=== PATIENT | female | born 1940 | race Caucasian/White ===

== ENCOUNTER 2019-01-20 14:30 | Observation (INO) ==
[2019-01-20] MEDS ORDERED: NITROGLYCERIN SL 0.4 MG/TAB TAB SL STA (14:57)
[2019-01-20 15:06] LABS: Basophils # (auto) 0.02 K/uL (0-0.2); Basophils % (auto) 0.3 %; Eosinophils # (auto) 0.04 K/uL (0-0.5); Eosinophils % (auto) 0.6 %; Hematocrit (blood only) 39.3 % (37-47); Hemoglobin 13.5 g/dL (12.0-16.0); Immature Granulocytes # (auto) 0.01 K/uL (0.00-0.02); Immature Granulocytes % (auto) 0.2 %; Lymphocytes # (auto) 1.38 K/uL (1.2-3.4); Lymphocytes % (auto) 21.9 %; Mean Corpuscular Hemoglobin 33.9 pg (25-34); Mean Corpuscular Hgb Conc 34.4 g/dL (32-36); Mean Corpuscular Volume 98.7 fL (80-100); Monocytes # (auto) 0.66 K/uL (0.11-0.59); Monocytes % (auto) 10.5 %; Neutrophils # (auto) 4.19 K/uL (1.4-6.5); Neutrophils % (auto) 66.5 %; Platelet Count 241 K/uL (130-400); RDW Coefficient of Variation 13.2 % (11.5-14.5); Red Blood Count 3.98 M/uL (4.2-5.4)
[2019-01-20 15:14] LABS: Alanine Aminotransferase 19 U/L (12-78); Albumin Level 3.7 gm/dl (3.4-5.0); Aspartate Aminotransferase 25 U/L (15-37); BUN Creatinine Ratio 13.9 (10-20); Blood Urea Nitrogen 17 mg/dl (7-18); Calcium 9.4 mg/dl (8.5-10.1); Carbon Dioxide 28 mmol/L (21-32); Chloride 98 mmol/L (98-107); Est GFR (African American) 50.1; Est GFR (Non-African American) 43.3; Glucose 121 mg/dl (70-99); Lipase 163 U/L (73-393); Potassium 3.8 mmol/L (3.5-5.1); Sodium 134 mmol/L (136-145)
[2019-01-20] MEDS ORDERED: MAGNESIUM SULFATE / D5W 1 GM/100 ML BAG IV ONE (15:14)
[2019-01-20 15:19] LABS: Alkaline Phosphatase 75 U/L (45-117); Bilirubin,Total 0.4 mg/dl (0.2-1); Creatine Kinase 52 U/L (26-192); Creatine Kinase MB 1.6 ng/ml (0.5-3.6); Globulin 3.8 gm/dl (2.5-4.0); NT Pro B Type Natriuretic Pept 867 pg/ml (0-1800); Total Protein 7.5 gm/dl (6.4-8.2); Troponin I < 0.015 ng/ml (0-0.045)
--- NOTE | 2019-01-20 15:25 | XRay Report ---
XR chest 1V portable CLINICAL HISTORY: Atypical chest pain COMPARISON STUDY: No previous studies for comparison. FINDINGS: The heart is normal in size. There is a possible hiatal hernia.. There is mild interstitial thickening a finding of uncertain chronicity. There is no lobar consolidation. There are no large pl eural effusions[. There is mild sclerosis of the right scapular neck IMPRESSION: 1. No evidence of focal pulmonary consolidation 2. Mild interstitial thickening, finding of uncertain chronicity 3. Possible hiatal hernia Electronically signed by: Kahlil Alfaro M.D. 01/20/2019 3:24 PM
[2019-01-20 15:53] LABS: Appearance Urine Clear (Clear); Bacteria Urine Automated 2+ (Negative); Bilirubin Urine Negative (Negative); Blood Urine Trace (Negative); Color Urine Yellow; Epithelial Cell Urine Auto >30 /lpf (0-5); Glucose Urine UA Negative (Negative); Ketones Urine Negative (Negative); Leukocyte Esterase Urine Negative (Negative); Nitrite Urine Negative (Negative); Protein Urine Negative (Negative); RBC Urine Automated 0-4 /hpf (0-4); Urobilinogen Urine Negative (Negative); pH Urine 5.5 (4.5-7.5)
--- NOTE | 2019-01-20 16:00 | History & Physical Report ---
Date of Service January 20, 2019 Assessment & Plan (1) Chest pain: Chest Pain: R/O ACS Risk factors: H/O CAD S/P stents, HTN, HLP, +Family history Last Cardiac Stent on Jan 11, 2019 at [facility] Initial troponin:Negative EKG shows: Sinus rhythm with occasional PVCs, no prior EKG to compare CXR: Unremarkable Last ECHO: EF: Unknown Trend serial cardiac enzymes, repeat EKG, fasting lipid panel, A1C, TSH in AM Continue Aspirin,Plavix, statins Hold Metoprolol due to bradycardia Oxygen PRN Check Resting ECHO NPO after midnight Cardiology consulted Obtain old records Symptomatic Bradycardia History of paroxysmal atrial fibrillation Possible tachybradycardia Syndrome Hold me to allow secondary to bradycardia Pacer pads at bedside Check orthostatics Hold Xarelto IV heparin drip for now Abnormal UA History of chronic urinary retention Urine sample likely contaminated due to catheterized urine Asymptomatic currently No antibiotics for now Follow-up urine culture Sleep apnea Continue CPAP Q Hs Hypertension Stable Monitor Dyslipidemia Continue Statin Hypothyroidism Continue Levothyroxine Check TSH Chronic urinary retention Self Cath PRN Continue Bactrim--chronic suppressive therapy DVT Px: Heparin drip Code Status Full Code Disposition Expect to discharge home when stable History of Present Illness Chief Complaint: Chest Pain, Dizziness Primary Care Provider: ELIZABETH ALTAMIRANO Patient is a 78-year-old female with history of coronary artery disease S/P stents, paroxysmal atrial fibrillation on chronic anti-coagulation, sleep apnea on CPAP, hypertension, dyslipidemia, hypothyroidism, chronic urinary retention and other problems presents with history of Chest pain, Dizziness. Patient had a stent placed on Jan 11, 2019 at [facility] in [place]. Patient got readmitted on January 12 for increased heart rate at [facility] as per patient. Patient's Toprol-XL was recently decreased from 50 mg to 25 mg daily. Patient reports chest pain which is retrosternal, pressure-like sensation, radiates to back and right upper extremity, intermittent--lasts for few seconds to minutes, no increase with exertion, slightly improved with aspirin and nitroglycerin today. Reports associated shortness of breath and dizziness but denies any history of loss of consciousness. Patient received 4 baby aspirin's and route to the hospital and nitroglycerin while in ER. Currently she grades the pain as 5/10. Also reports dry cough for the last 2 days and has burping multiple times today. She is noted to be bradycardic and high 40s/low 50s while in ED. Denies any history of palpitations, pedal edema, diaphoresis, hemoptysis, fever, chills, fall, LOC, headache, nausea, vomiting, abdominal pain, diarrhea, dysuria, hematuria, increased urinary frequency. Allergies Allergy/AdvReac Type Severity Reaction Status Date / Time No Known Allergies Allergy Unverified 01/20/19 15:44 Home Medications Home Medications Medication Instructions Recorded Confirmed Type aspirin 81 mg PO QAM 01/20/19 01/20/19 History calcium carbonate-vitamin D3 0.5 tab PO BID 01/20/19 01/20/19 History clopidogrel 75 mg PO QAM 01/20/19 01/20/19 History cranberry 500 mg PO PM 01/20/19 01/20/19 History cyanocobalamin (vitamin B-12) 1,000 mcg PO PM 01/20/19 01/20/19 History diphenhydramine-acetaminophen 0.5 - 1 tab PO DIRECTED PRN 01/20/19 01/20/19 History [Tylenol PM Extra Strength] furosemide 10 mg PO QAM 01/20/19 01/20/19 History levothyroxine 75 mcg PO DAILYBB 01/20/19 01/20/19 History metoprolol succinate 25 mg PO QAM 01/20/19 01/20/19 History pantoprazole 40 mg PO QAM 01/20/19 01/20/19 History polyethylene glycol 3350 [GlycoLax] 17 g PO QAM 01/20/19 01/20/19 History rivaroxaban [Xarelto] 15 mg PO QDD 01/20/19 01/20/19 History rosuvastatin 10 mg PO PM 01/20/19 01/20/19 History sulfamethoxazole-trimethoprim 0.5 tab PO AMPM 01/20/19 01/20/19 History [Bactrim DS] Past Med/Surg History Medical History Hypertension Atrial fibrillation Bradycardia CAD (coronary artery disease) Depression with anxiety Hyperlipidemia Hypothyroidism Paroxysmal atrial fibrillation Sleep apnea Urinary retention Surgical History History of heart artery stent H/O neck surgery History of carpal tunnel surgery History of left knee replacement Family History Father Coronary heart disease Sister Coronary heart disease Brother Coronary heart disease Mother Cancer Social History Feels Safe at Home: Yes Smoking Status: Never smoker Hx Alcohol Use: No Hx Substance Use: No Review of Systems Review of Systems: All systems reviewed & are unremarkable except as noted in HPI & below Physical Exam Physical Exam: Physical Exam: Vitals signs as noted above General Appearance:Moderately built and nourished, no apparent distress Head: normocephalic, Atraumatic Eyes: normal inspection, EOMI Neck: supple, Trachea midline Respiratory/Chest: Normal breath sounds, CTA, No accessory muscle use Cardiovascular: S1, S2, + murmur, +Bradycardia Abdomen/GI:Soft, Non tender, Bowel sounds present Extremities/Musculoskelatal:normal inspection, Trace pretibial edema Neurologic/Psych:AAOX3, grossly no focal neurological deficits Skin: normal color, warm Results & Data Vital Signs (Past 12 Hours) Vital Signs Temp Pulse Resp BP Pulse Ox 01/20/19 14:57 98 01/20/19 14:41 36.6 C 58 L 18 118/70 98 Laboratory Results Short CBC 01/20/19 Range/Units 14:10 WBC 6.30 (4.8-10.8) K/uL Hgb 13.5 (12.0-16.0) g/dL Hct 39.3 (37-47) % Plt Count 241 (130-400) K/uL BMP 01/20/19 14:10 Sodium 134 L Potassium 3.8 Chloride 98 Carbon Dioxide 28 BUN 17 Creatinine 1.20 Glucose 121 H Calcium 9.4 Cardiac Enzymes 01/20/19 Range/Units 14:10 Total Creatine Kinase 52 (26-192) U/L CK-MB (CK-2) 1.6 (0.5-3.6) ng/ml Troponin I < 0.015 (0-0.045) ng/ml Liver Function 01/20/19 Range/Units 14:10 Total Bilirubin 0.4 (0.2-1) mg/dl AST 25 (15-37) U/L ALT 19 (12-78) U/L Alkaline Phosphatase 75 (45-117) U/L Albumin 3.7 (3.4-5.0) gm/dl Urine 01/20/19 Range/Units 15:30 Urine Color Yellow Urine Appearance Clear (Clear) Urine pH 5.5 (4.5-7.5) Ur Specific [place] 1.020 (1.000-1.030) Urine Protein Negative (Negative) Urine Glucose (UA) Negative (Negative) Diagnostic Findings CXR:No evidence of focal pulmonary consolidation. Mild interstitial thickening, finding of uncertain chronicity. Possible hiatal hernia Medications Administered Home Medications Medication Instructions Recorded Confirmed aspirin 81 mg PO QAM 01/20/19 01/20/19 calcium carbonate-vitamin D3 0.5 tab PO BID 01/20/19 01/20/19 clopidogrel 75 mg PO QAM 01/20/19 01/20/19 cranberry 500 mg PO PM 01/20/19 01/20/19 cyanocobalamin (vitamin B-12) 1,000 mcg PO PM 01/20/19 01/20/19 diphenhydramine-acetaminophen 0.5 - 1 tab PO DIRECTED PRN 01/20/19 01/20/19 [Tylenol PM Extra Strength] furosemide 10 mg PO QAM 01/20/19 01/20/19 levothyroxine 75 mcg PO DAILYBB 01/20/19 01/20/19 metoprolol succinate 25 mg PO QAM 01/20/19 01/20/19 pantoprazole 40 mg PO QAM 01/20/19 01/20/19 polyethylene glycol 3350 [GlycoLax] 17 g PO QAM 01/20/19 01/20/19 rivaroxaban [Xarelto] 15 mg PO QDD 01/20/19 01/20/19 rosuvastatin 10 mg PO PM 01/20/19 01/20/19 sulfamethoxazole-trimethoprim 0.5 tab PO AMPM 01/20/19 01/20/19 [Bactrim DS] ECG Additional Comments: EKG: Sinus rhythm with occasional PVCs, QTC 434
[2019-01-20] MEDS ORDERED: Heparin IV Standard *NO* Bolus IV SCH (18:21)
[2019-01-20] MEDS ORDERED: NITROGLYCERIN SL 0.4 MG/TAB TAB SL PRN (18:21)
[2019-01-20] MEDS ORDERED: ACETAMINOPHEN 325 MG TAB PO PRN (18:21)
[2019-01-20] MEDS ORDERED: ONDANSETRON INJ 2 MG/ML 2 ML VIAL IV PRN (18:21)
[2019-01-20] MEDS ORDERED: SODIUM CHLORIDE 0.9% 1000ML 1,000 ML IV SCH (19:00)
[2019-01-20] MEDS ORDERED: HEPARIN SODIUM/DEXTROSE 25,000 UNITS/500 ML BAG IV SCH (19:45)
[2019-01-20] MEDS: SULFAMETHOXAZOLE/TRIMETHOPRIM DS 800/160MG TAB PO SCH (20:08)
[2019-01-20] MEDS ORDERED: CYANOCOBALAMIN 500 MCG TABLET (VITAMIN B-12) PO SCH (21:00)
[2019-01-20] MEDS ORDERED: ROSUVASTATIN CALCIUM 10 MG TAB PO SCH (21:00)
[2019-01-20] MEDS ORDERED: NON-FORMULARY MEDICATION (Cranberry 500 MG) PO SCH (21:00)
[2019-01-21 02:11] LABS: Basophils # (auto) 0.02 K/uL (0-0.2); Basophils % (auto) 0.4 %; Eosinophils # (auto) 0.09 K/uL (0-0.5); Eosinophils % (auto) 1.7 %; Hematocrit (blood only) 33.5 % (37-47); Hemoglobin 11.5 g/dL (12.0-16.0); Immature Granulocytes # (auto) 0.01 K/uL (0.00-0.02); Immature Granulocytes % (auto) 0.2 %; Lymphocytes # (auto) 1.73 K/uL (1.2-3.4); Lymphocytes % (auto) 32.4 %; Mean Corpuscular Hemoglobin 33.3 pg (25-34); Mean Corpuscular Hgb Conc 34.3 g/dL (32-36); Mean Corpuscular Volume 97.1 fL (80-100); Mean Platelet Volume 9.4 fL (7.4-10.4); Monocytes # (auto) 0.68 K/uL (0.11-0.59); Monocytes % (auto) 12.7 %; Neutrophils # (auto) 2.81 K/uL (1.4-6.5); Neutrophils % (auto) 52.6 %; Platelet Count 216 K/uL (130-400); RDW Coefficient of Variation 13.2 % (11.5-14.5); RDW Standard Deviation 46.3 fL (36.4-46.3); Red Blood Count 3.45 M/uL (4.2-5.4); White Blood Count 5.34 K/uL (4.8-10.8)
[2019-01-21 02:29] LABS: BUN Creatinine Ratio 11.6 (10-20); Blood Urea Nitrogen 14 mg/dl (7-18); Calcium 8.7 mg/dl (8.5-10.1); Carbon Dioxide 27 mmol/L (21-32); Chloride 103 mmol/L (98-107); Creatinine Clr Calc Pharmacy 36.1 ml/min; Est GFR (African American) 50.1; Est GFR (Non-African American) 43.3; Glucose 101 mg/dl (70-99); Magnesium 2.3 mg/dl (1.8-2.4); Potassium 3.8 mmol/L (3.5-5.1); Sodium 136 mmol/L (136-145)
[2019-01-21 02:36] LABS: Partial Thromboplastin Ratio > 5.1
[2019-01-21 02:40] LABS: Chol HDL Ratio 2; Cholesterol 123 mg/dl (0-200); HDL Cholesterol 75 mg/dl; LDL Cholesterol Calculated 39 mg/dl; Triglycerides 43 mg/dl (0-150); Troponin I < 0.015 ng/ml (0-0.045); VLDL Cholesterol 9 mg/dl
[2019-01-21 04:06] LABS: Partial Thromboplastin Time > 139.0 Seconds (21.0-31.0)
[2019-01-21 04:22] LABS: Partial Thromboplastin Ratio 4.6
[2019-01-21 04:33] LABS: Partial Thromboplastin Time 125.9 Seconds (21.0-31.0)
[2019-01-21 05:53] LABS: Partial Thromboplastin Ratio 2.5
[2019-01-21] MEDS ORDERED: LEVOTHYROXINE SODIUM 75 MCG TABLET PO SCH (06:30)
[2019-01-21 07:14] LABS: Estimated Average Glucose 114 mg/dl; Hemoglobin A1C 5.6 % (4.5-5.6)
[2019-01-21] MEDS ORDERED: POLYETHYLENE (MIRALAX) 17 GM PACK PO SCH (09:00)
[2019-01-21] MEDS ORDERED: CLOPIDOGREL BISULFATE 75 MG TAB PO SCH (09:00)
[2019-01-21] MEDS ORDERED: ASPIRIN 81 MG ECTAB PO SCH (09:00)
[2019-01-21] MEDS ORDERED: PANTOprazole 40 MG TAB PO SCH (09:00)
[2019-01-21] MEDS: SULFAMETHOXAZOLE/TRIMETHOPRIM DS 800/160MG TAB PO SCH (09:17)
[2019-01-21] MEDS ORDERED: METOPROLOL SUCC 25MG EXT REL TAB PO SCH (12:30)
--- NOTE | 2019-01-21 12:31 | Hospitalist Progress Note ---
Date of Service January 21, 2019 Assessment & Plan (1) Chest pain: Chest Pain: R/O ACS Risk factors: H/O CAD S/P stents, HTN, HLP, +Family history Last Cardiac Stent on Jan 11, 2019 at [facility] Troponin:Negative EKG shows: Sinus rhythm with occasional PVCs, no prior EKG to compare CXR: No evidence of focal pulmonary consolidation. Mild interstitial thickening, finding of uncertain chronicity. Possible hiatal hernia ECHO: Mild concentric LVH, EF greater than 70%, no segmental left ventricular wall motion abnormality, grade 2 diastolic dysfunction, mild MR. Fasting lipid panel:WNL A1C:5.6 TSH:2.6 Continue Aspirin,Plavix, statins Metoprolol dose decreased to 12.5mg due to bradycardia Oxygen PRN Appreciate Cardiology Input Obtain old records Needs follow up with Cardiology upon discharge Symptomatic Bradycardia History of paroxysmal atrial fibrillation Possible tachybradycardia Syndrome Pacer pads at bedside Resume Xarelto IV heparin drip discontinued Metoprolol dose decreased as above Possible Urinary Tract Infection: POA DD: ? Colonization Likely due to catheterization History of chronic urinary retention Asymptomatic currently Started on Ceftriaxone Urine Cx:E.coli Patient prefers to follow-up with her PCP for final urine cultures Plan to discharge on oral antibiotic course for UTI Sleep apnea Continue CPAP Q Hs Hypertension Stable Monitor Dyslipidemia Continue Statin Hypothyroidism Continue Levothyroxine TSH:2.6 Chronic urinary retention Self Cath PRN On Bactrim--chronic suppressive therapy DVT Px: Xarelto Code Status Full Code Disposition: Plan to discharge home today Subjective Patient is seen and examined at bedside Pain much better today Bradycardia on monitoring analyst Chest discomfort, dizziness completely resolved Discussed with cardiology today Offers no other complaints Plan to be discharged home today Review of Systems Review of Systems: All systems reviewed & are unremarkable except as noted in HPI & below Physical Exam Physical Exam: Physical Exam: Vitals signs as noted above General Appearance:Moderately built and nourished, no apparent distress Head: normocephalic, Atraumatic Eyes: normal inspection, EOMI Neck: supple, Trachea midline Respiratory/Chest: Normal breath sounds, CTA, No accessory muscle use Cardiovascular: S1, S2, + murmur, +Bradycardia Abdomen/GI:Soft, Non tender, Bowel sounds present Extremities/Musculoskelatal:normal inspection, Trace pretibial edema Neurologic/Psych:AAOX3, grossly no focal neurological deficits Skin: normal color, warm Results & Data Vital Signs (Past 12 Hours) Vital Signs Temp Pulse Resp BP BP Pulse Ox 01/21/19 11:10 36.3 C L 52 L 16 135/78 96 01/21/19 03:43 36.5 C 54 L 18 123/66 98 Laboratory Results Short CBC 01/20/19 01/21/19 Range/Units 14:10 01:51 WBC 6.30 5.34 (4.8-10.8) K/uL Hgb 13.5 11.5 L (12.0-16.0) g/dL Hct 39.3 33.5 L (37-47) % Plt Count 241 216 (130-400) K/uL BMP 01/20/19 01/21/19 14:10 01:51 Sodium 134 L 136 Potassium 3.8 3.8 Chloride 98 103 Carbon Dioxide 28 27 BUN 17 14 Creatinine 1.20 1.20 Glucose 121 H 101 H Calcium 9.4 8.7 Cardiac Enzymes 01/20/19 01/20/19 01/21/19 Range/Units 14:10 20:59 01:51 Total Creatine Kinase 52 (26-192) U/L CK-MB (CK-2) 1.6 (0.5-3.6) ng/ml Troponin I < 0.015 < 0.015 < 0.015 (0-0.045) ng/ml Liver Function 01/20/19 Range/Units 14:10 Total Bilirubin 0.4 (0.2-1) mg/dl AST 25 (15-37) U/L ALT 19 (12-78) U/L Alkaline Phosphatase 75 (45-117) U/L Albumin 3.7 (3.4-5.0) gm/dl Urine 01/20/19 Range/Units 15:30 Urine Color Yellow Urine Appearance Clear (Clear) Urine pH 5.5 (4.5-7.5) Ur Specific [place] 1.020 (1.000-1.030) Urine Protein Negative (Negative) Urine Glucose (UA) Negative (Negative)
[2019-01-21 12:35] LABS: Partial Thromboplastin Time 108.7 Seconds (21.0-31.0)
[2019-01-21] MEDS ORDERED: cefTRIAXone SODIUM 1,000 MG in DEXTROSE 5% 50 ML IV SCH (13:00)
--- NOTE | 2019-01-21 13:59 | Discharge Summary ---
Date of Service January 21, 2019 Admission HPI Per Admitting Provider Patient is a 78-year-old female with history of coronary artery disease S/P stents, paroxysmal atrial fibrillation on chronic anti-coagulation, sleep apnea on CPAP, hypertension, dyslipidemia, hypothyroidism, chronic urinary retention and other problems presents with history of Chest pain, Dizziness. Patient had a stent placed on Jan 11, 2019 at [facility] in [place]. Patient got readmitted on January 12 for increased heart rate at [facility] as per patient. Patient's Toprol-XL was recently decreased from 50 mg to 25 mg daily. Patient reports chest pain which is retrosternal, pressure-like sensation, radiates to back and right upper extremity, intermittent--lasts for few seconds to minutes, no increase with exertion, slightly improved with aspirin and nitroglycerin today. Reports associated shortness of breath and dizziness but denies any history of loss of consciousness. Patient received 4 baby aspirin's and route to the hospital and nitroglycerin while in ER. Currently she grades the pain as 5/10. Also reports dry cough for the last 2 days and has burping multiple times today. She is noted to be bradycardic and high 40s/low 50s while in ED. Denies any history of palpitations, pedal edema, diaphoresis, hemoptysis, fever, chills, fall, LOC, headache, nausea, vomiting, abdominal pain, diarrhea, dysuria, hematuria, increased urinary frequency. Admission Exam Per Admitting Provider Physical Exam: Vitals signs as noted above General Appearance:Moderately built and nourished, no apparent distress Head: normocephalic, Atraumatic Eyes: normal inspection, EOMI Neck: supple, Trachea midline Respiratory/Chest: Normal breath sounds, CTA, No accessory muscle use Cardiovascular: S1, S2, + murmur, +Bradycardia Abdomen/GI:Soft, Non tender, Bowel sounds present Extremities/Musculoskelatal:normal inspection, Trace pretibial edema Neurologic/Psych:AAOX3, grossly no focal neurological deficits Skin: normal color, warm Principal Diagnosis Chest pain Symptomatic bradycardia Urinary tract infection Discharge Data Allergies Allergy/AdvReac Type Severity Reaction Status Date / Time No Known Allergies Allergy Unverified 01/20/19 15:44 Consultations 01/20/19 15:57 ED Decision to Admit Stat 01/20/19 18:21 Consult Cardiology Routine Consult Case Management - Discharge Planning Routine Consult Health Information Management Routine Procedures Performed CXR: No evidence of focal pulmonary consolidation. Mild interstitial thickening, finding of uncertain chronicity. Possible hiatal hernia ECHO: Mild concentric LVH, EF greater than 70%, no segmental left ventricular wall motion abnormality, grade 2 diastolic dysfunction, mild MR. Hospital Course (1) Chest pain: Chest Pain: R/O ACS Risk factors: H/O CAD S/P stents, HTN, HLP, +Family history Last Cardiac Stent on Jan 11, 2019 at [facility] Troponin:Negative EKG shows: Sinus rhythm with occasional PVCs, no prior EKG to compare CXR: No evidence of focal pulmonary consolidation. Mild interstitial thickening, finding of uncertain chronicity. Possible hiatal hernia ECHO: Mild concentric LVH, EF greater than 70%, no segmental left ventricular wall motion abnormality, grade 2 diastolic dysfunction, mild MR. Fasting lipid panel:WNL A1C:5.6 TSH:2.6 Continue Aspirin,Plavix, statins Metoprolol dose decreased to 12.5mg due to bradycardia Oxygen PRN Appreciate Cardiology Input Obtain old records Needs follow up with Cardiology upon discharge Symptomatic Bradycardia History of paroxysmal atrial fibrillation Possible tachybradycardia Syndrome Pacer pads at bedside Resume Xarelto IV heparin drip discontinued Metoprolol dose decreased as above Possible Urinary Tract Infection: POA DD: ? Colonization Likely due to catheterization History of chronic urinary retention Asymptomatic currently Started on Ceftriaxone Urine Cx:E.coli Patient prefers to follow-up with her PCP for final urine cultures Plan to discharge on oral antibiotic course for UTI Sleep apnea Continue CPAP Q Hs Hypertension Stable Monitor Dyslipidemia Continue Statin Hypothyroidism Continue Levothyroxine TSH:2.6 Chronic urinary retention Self Cath PRN On Bactrim--chronic suppressive therapy DVT Px: Xarelto Code Status Full Code Disposition: Plan to discharge home today Total Time Total Time Spent Total Time Spent (In Minutes): 34 minutes Total Time Includes: Examination of the Patient, Discharge Planning, Medication Reconciliation, Communication With Other Providers and Other Discharge Plan Discharge Items Patient Disposition: Home - Self-Care Reason For Visit: CHEST PAIN, DIZZINESS Discharge Diagnosis: Chest pain Symptomatic bradycardia Urinary tract infection Activity: Resume your previous activity Exercise/Sports: Gradually increase as tolerated Non-emergency contact: Primary Care Provider and Injection Molding Machine Operator Call non-emergency contact if: you have any medication questions, your symptoms worsen, your pain is not controlled, your pain is worsening, your pain is unusual for you, your pain is concerning for you and you have a fever Follow-up/Referrals: Nikki Arthur MD [Primary Care Provider] - Diet: Heart Healthy Addtl Attending Provider Instructions: Follow-up with your primary care physician Dr. Nikki Arthur on January 23, 2019 Follow-up with your storm window installer on January 23, 2019 as scheduled Complete the antibiotic course for urinary tract infection as prescribed Plan to resume Bactrim for chronic suppressive therapy after completion of antibiotic course for urinary tract infection Your metoprolol dose is decreased to 12.5 mg daily as per the recommendations from your storm window installer Your final urine cultures are pending at the time of discharge. Follow-up with your primary care physician for results and adjust your antibiotic as needed. Seek immediate medical attention if your symptoms reoccur or worsen Pending Studies at Discharge: Yes Studies:: Urine Culture Stand-Alone Forms: [facility] Medications and DC Order Prescriptions: New cefdinir 300 mg capsule 300 mg PO BID 5 Days Qty: 10 RF: 0 Continued cyanocobalamin (vitamin B-12) 1,000 mcg Tablet 1,000 mcg PO PM RF: 0 clopidogrel 75 mg tablet 75 mg PO QAM RF: 0 calcium carbonate-vitamin D3 600 mg(1,500mg) -200 unit Tablet 0.5 tab PO BID RF: 0 sulfamethoxazole-trimethoprim [Bactrim DS] 800-160 mg tablet 0.5 tab PO AMPM RF: 0 aspirin 81 mg Tablet,Delayed Release (Dr/Ec) 81 mg PO QAM RF: 0 levothyroxine 50 mcg tablet 75 mcg PO DAILYBB RF: 0 pantoprazole 40 mg tablet,delayed release (DR/EC) 40 mg PO QAM RF: 0 furosemide 20 mg tablet 10 mg PO QAM RF: 0 polyethylene glycol 3350 [GlycoLax] 17 gram/dose Powder 17 g PO QAM RF: 0 cranberry 500 mg Capsule 500 mg PO PM RF: 0 rosuvastatin 10 mg tablet 10 mg PO PM RF: 0 Xarelto 15 mg tablet 15 mg PO QDD RF: 0 diphenhydramine-acetaminophen [Tylenol PM Extra Strength] 25-500 mg Tablet 0.5 - 1 tab PO DIRECTED PRN (Reason: Sleep) RF: 0 Changed metoprolol succinate 25 mg tablet extended release 24 hr 12.5 mg PO QAM Qty: 0 RF: 0 Discharge Orders: Discharge Order (Routine); Ordered 01/21/19 Ordered By: Omar Adkins Admission Data Admit Date/Time: 01/20/19 17:59 Attending Provider: Omar Adkins Admit Provider: Omar Adkins Primary Care Provider: Nikki Arthur Other Providers: Omar Adkins ; Christopher Guadarrama Other Interventions: Discharge Summary Assessment (RN) Last Done: 01/21/19 14:49 DC Date/Time DO NOT enter until pt leaves facility: 01/21/19 16:30
--- NOTE | 2019-01-21 15:01 | Cardiology Consultation ---
Date of Consultation January 21, 2019 Assessment & Plan (1) Bradycardia: Reduce metoprolol succinate to 12.5 mg daily Evidence of borderline tachybrady syndrome and given underlying PAF, may ultimately require pacemaker implantation. No evidence to support implantation urgently at this time. Follow up with her cardiology team recommended this week. (2) Atrial fibrillation: No recurrence during admission Metorolol reduced to 12.5 mg daily Continue Xarelto (3) CAD (coronary artery disease): Negative cardiac enzymes. EKG without acute ischemic changes Echocardiogram with preserved LV systolic function, no wall motion abnormalities. continue ASA, plavix, beta krzysztof, statin given recent stent implantation. F/U with primary pressure tester operator. Supervising Physician Co-Signing Physician Notes Patient seen and examined with Yazmin Pickens PA-C. Agree with findings and assessment as above. and son present at the bedside during interview. Recent extensive cardiac history as documented below. Presenting symptoms appear to be secondary to symptomatic bradycardia. This may ultimately represent tachybradycardia syndrome however, for now we will reduce her metoprolol to 12.5 mg daily and allow her to be discharged home. She is already scheduled to see her primary pressure tester operator on [id number] and I recommend she keep that appointment. Should any recurrent symptoms occur she is to seek immediate medical attention at the nearest emergency department. The patient and her family all state that they understand, they are accepting of the above recommendations and will follow-up as scheduled. General: Awake, alert and oriented x 3. No acute distress. HEENT: Normocephalic, atraumatic. Pupils equal, round and reactive to light and accommodation. Extraocular muscles are intact. Anicteric sclera. Moist mucous membranes. Neck: No JVD. No bruit. Cardiovascular: Regular. Positive S-4. Normal S-1 and S-2. No S-3. No murmurs or rubs. Pulmonary: Clear to auscultation B/L. No rales, rhonchi or wheezing Abdomen: Bowel sounds x 4, soft. No rebound, guarding or tenderness. No organomegaly. Extremities: No clubbing, cyanosis or edema. +2 pedal pulses bilaterally. Skin: Warm and dry. History of Present Illness Reason for Consultation: Chest pain; bradycardia Requesting Physician: Dr. Ayoub Attending Physician: Dr. Estevan Guadarrama History of Present Illness patient is a 78-year-old female who was admitted yesterday with complaints of dizziness, bradycardia and intermittent chest pain. She lives outside the [place] area and has a pressure tester operator at [facility]. Records not available currently. She reports on January 11 she underwent stent placement to an unknown artery. She has a history of prior coronary intervention in 2004 as well. She was placed on plavix, ASA and beta krzysztof on discharge. 2 days later she was Reportedly at the emergency department near [place] for complaints of palpitations and tachycardia. She was apparently diagnosed with paroxysmal atrial fibrillation. Metoprolol dose was increased to 50 mg daily And she was started on Xarelto. She converted to normal sinus rhythm prior to discharge. Per patient, metoprolol was then reduce to 25 mg daily due to concerns regarding bradycardia and history of slower heart rates. Patient reports she came to visit family in the [place] area this weekend. Yesterday afternoon she was in normal state of health until she developed mild dizziness, chest heaviness and weakness. She had a pulse oximeter at the house and heart rate was in the 30s and 40s so she presented to [facility] for evaluation. Upon arrival she was found to be in normal sinus rhythm with heart rates in the 60s. EKG demonstrated normal sinus rhythm with PVC otherwise no acute changes. Serial Cardiac enzymes unremarkable. Metoprolol was held on arrival. Chest heaviness resolved. No atrial fibrillation on monitor. Overnight she was mildly bradycardic in the 40s During times of presumed sleep. While awake, heart rates in the 60s. No pauses. She underwent updated 2D echocardiogram which demonstrated preserved LV systolic function without wall motion abnormalities. No significant valvular heart disease. At time of consult, patient resting in bed for feeling okay. Dizziness resolved. Mild chest heaviness resolved. Anxious to be discharged. Reportedly has cardiology follow-up on Monday of this week with her primary pressure tester operator at [facility]. Allergies Allergy/AdvReac Type Severity Reaction Status Date / Time No Known Allergies Allergy Unverified 01/20/19 15:44 Home Medications Home Medications Medication Instructions Recorded Confirmed Type Xarelto 15 mg PO QDD 01/20/19 01/20/19 History aspirin 81 mg PO QAM 01/20/19 01/20/19 History calcium carbonate-vitamin D3 0.5 tab PO BID 01/20/19 01/20/19 History clopidogrel 75 mg PO QAM 01/20/19 01/20/19 History cranberry 500 mg PO PM 01/20/19 01/20/19 History cyanocobalamin (vitamin B-12) 1,000 mcg PO PM 01/20/19 01/20/19 History diphenhydramine-acetaminophen 0.5 - 1 tab PO DIRECTED PRN 01/20/19 01/20/19 History [Tylenol PM Extra Strength] furosemide 10 mg PO QAM 01/20/19 01/20/19 History levothyroxine 75 mcg PO DAILYBB 01/20/19 01/20/19 History pantoprazole 40 mg PO QAM 01/20/19 01/20/19 History polyethylene glycol 3350 [GlycoLax] 17 g PO QAM 01/20/19 01/20/19 History rosuvastatin 10 mg PO PM 01/20/19 01/20/19 History sulfamethoxazole-trimethoprim 0.5 tab PO AMPM 01/20/19 01/20/19 History [Bactrim DS] cefdinir 300 mg PO BID 5 Days #10 cap 01/21/19 Rx metoprolol succinate 12.5 mg PO QAM #0 tab 01/21/19 01/20/19 Rx Patient History Medical History Hypertension Atrial fibrillation Bradycardia CAD (coronary artery disease) Depression with anxiety Hyperlipidemia Hypothyroidism Paroxysmal atrial fibrillation Sleep apnea Urinary retention Surgical History History of heart artery stent H/O neck surgery History of carpal tunnel surgery History of left knee replacement Family History Father Coronary heart disease Sister Coronary heart disease Brother Coronary heart disease Mother Cancer Social History Preferred Language: Togolese Communication Ability: Effective Jewel Inspector Required: No Beliefs That Will Affect Care: None Current Living Situation: Spouse Other Information That Helps Us Care for You: No Feels Safe at Home: Yes Safety Concerns: Feels Safe At This Time Smoking Status: Never smoker Hx Alcohol Use: No Hx Substance Use: No Review of Systems Review of Systems: All systems reviewed & are unremarkable except as noted in HPI & below Physical Exam Physical Exam: General: NAD. A+Ox3. HEENT: Normocephalic. Atraumatic. PERRL. EOMI. Conjunctiva and sclera clear. NECK: No carotid bruits. No JVD. Carotid upstrokes are brisk. Heart: RRR. S1 and S2 noted without murmur, rubs, gallops. PMI non displaced. Lungs: Clear to auscultation and percussion. No wheezes, rhonchi, rales. Abdomen: Normal bowel sounds. Soft. Nontender. No masses or organomegaly. No abdominal bruits. Extremities: No edema. No clubbing or cyanosis. Pulses: radial=2/4, posterior tibial=2/4, dorsalis pedis = 2/4. NEURO: No focal deficits. PSYCH: Normal. Results & Data Vital Signs (Past 12 Hours) Vital Signs Temp Pulse Resp BP BP Pulse Ox 01/21/19 14:49 36.3 C L 52 L 16 123/66 135/78 96 01/21/19 11:10 36.3 C L 52 L 16 135/78 96 01/21/19 03:43 36.5 C 54 L 18 123/66 98 Laboratory Results 01/21/19 01/21/19 01/21/19 Range/Units 11:59 05:16 03:47 WBC (4.8-10.8) K/uL RBC (4.2-5.4) M/uL Hgb (12.0-16.0) g/dL Hct (37-47) % MCV (80-100) fL MCH (25-34) pg MCHC (32-36) g/dL RDW Std Deviation (36.4-46.3) fL RDW Coeff of Hyun (11.5-14.5) % Plt Count (130-400) K/uL MPV (7.4-10.4) fL Immature Gran % (Auto) % Neut % (Auto) % Lymph % (Auto) % Ware % (Auto) % Eos % (Auto) % Baso % (Auto) % Immature Gran # (Auto) (0.00-0.02) K/uL Neut # (Auto) (1.4-6.5) K/uL Lymph # (Auto) (1.2-3.4) K/uL Ware # (Auto) (0.11-0.59) K/uL Eos # (Auto) (0-0.5) K/uL Baso # (Auto) (0-0.2) K/uL APTT 108.7 H* 66.0 H* 125.9 H* (21.0-31.0) Seconds PTT Ratio 4.0 2.5 4.6 Sodium (136-145) mmol/L Potassium (3.5-5.1) mmol/L Chloride (98-107) mmol/L Carbon Dioxide (21-32) mmol/L Anion Gap (3-11) BUN (7-18) mg/dl Creatinine (0.6-1.2) mg/dl Est Cr Clr Drug Dosing ml/min Est GFR ( Amer) Est GFR (Non-Af Amer) BUN/Creatinine Ratio (10-20) Glucose (70-99) mg/dl Estimat Average Glucose mg/dl Hemoglobin A1c (4.5-5.6) % Calcium (8.5-10.1) mg/dl Magnesium (1.8-2.4) mg/dl Troponin I (0-0.045) ng/ml Triglycerides (0-150) mg/dl Cholesterol (0-200) mg/dl LDL Cholesterol, Calc mg/dl VLDL Cholesterol, Calc mg/dl HDL Cholesterol mg/dl Cholesterol/HDL Ratio TSH (0.300-4.500) uIu/ml Urine Color Urine Appearance (Clear) Urine pH (4.5-7.5) Ur Specific [place] (1.000-1.030) Urine Protein (Negative) Urine Glucose (UA) (Negative) Urine Ketones (Negative) Urine Blood (Negative) Urine Nitrite (Negative) Urine Bilirubin (Negative) Urine Urobilinogen (Negative) Ur Leukocyte Esterase (Negative) Urine WBC (Auto) (0-5) /hpf Urine RBC (Auto) (0-4) /hpf U Hyaline Cast (Auto) (0-5) /lpf U Epithel Cells (Auto) (0-5) /lpf Urine Bacteria (Auto) (Negative) 01/21/19 01/21/19 01/21/19 Range/Units 03:47 01:51 01:51 WBC 5.34 (4.8-10.8) K/uL RBC 3.45 L (4.2-5.4) M/uL Hgb 11.5 L (12.0-16.0) g/dL Hct 33.5 L (37-47) % MCV 97.1 (80-100) fL MCH 33.3 (25-34) pg MCHC 34.3 (32-36) g/dL RDW Std Deviation 46.3 (36.4-46.3) fL RDW Coeff of Hyun 13.2 (11.5-14.5) % Plt Count 216 (130-400) K/uL MPV 9.4 (7.4-10.4) fL Immature Gran % (Auto) 0.2 % Neut % (Auto) 52.6 % Lymph % (Auto) 32.4 % Ware % (Auto) 12.7 % Eos % (Auto) 1.7 % Baso % (Auto) 0.4 % Immature Gran # (Auto) 0.01 (0.00-0.02) K/uL Neut # (Auto) 2.81 (1.4-6.5) K/uL Lymph # (Auto) 1.73 (1.2-3.4) K/uL Ware # (Auto) 0.68 H (0.11-0.59) K/uL Eos # (Auto) 0.09 (0-0.5) K/uL Baso # (Auto) 0.02 (0-0.2) K/uL APTT > 139.0 H* (21.0-31.0) Seconds PTT Ratio > 5.1 Sodium (136-145) mmol/L Potassium (3.5-5.1) mmol/L Chloride (98-107) mmol/L Carbon Dioxide (21-32) mmol/L Anion Gap (3-11) BUN (7-18) mg/dl Creatinine (0.6-1.2) mg/dl Est Cr Clr Drug Dosing ml/min Est GFR ( Amer) Est GFR (Non-Af Amer) BUN/Creatinine Ratio (10-20) Glucose (70-99) mg/dl Estimat Average Glucose 114 mg/dl Hemoglobin A1c 5.6 (4.5-5.6) % Calcium (8.5-10.1) mg/dl Magnesium (1.8-2.4) mg/dl Troponin I (0-0.045) ng/ml Triglycerides (0-150) mg/dl Cholesterol (0-200) mg/dl LDL Cholesterol, Calc mg/dl VLDL Cholesterol, Calc mg/dl HDL Cholesterol mg/dl Cholesterol/HDL Ratio TSH (0.300-4.500) uIu/ml Urine Color Urine Appearance (Clear) Urine pH (4.5-7.5) Ur Specific [place] (1.000-1.030) Urine Protein (Negative) Urine Glucose (UA) (Negative) Urine Ketones (Negative) Urine Blood (Negative) Urine Nitrite (Negative) Urine Bilirubin (Negative) Urine Urobilinogen (Negative) Ur Leukocyte Esterase (Negative) Urine WBC (Auto) (0-5) /hpf Urine RBC (Auto) (0-4) /hpf U Hyaline Cast (Auto) (0-5) /lpf U Epithel Cells (Auto) (0-5) /lpf Urine Bacteria (Auto) (Negative) 01/21/19 01/20/19 01/20/19 Range/Units 01:51 20:59 15:30 WBC (4.8-10.8) K/uL RBC (4.2-5.4) M/uL Hgb (12.0-16.0) g/dL Hct (37-47) % MCV (80-100) fL MCH (25-34) pg MCHC (32-36) g/dL RDW Std Deviation (36.4-46.3) fL RDW Coeff of Hyun (11.5-14.5) % Plt Count (130-400) K/uL MPV (7.4-10.4) fL Immature Gran % (Auto) % Neut % (Auto) % Lymph % (Auto) % Ware % (Auto) % Eos % (Auto) % Baso % (Auto) % Immature Gran # (Auto) (0.00-0.02) K/uL Neut # (Auto) (1.4-6.5) K/uL Lymph # (Auto) (1.2-3.4) K/uL Ware # (Auto) (0.11-0.59) K/uL Eos # (Auto) (0-0.5) K/uL Baso # (Auto) (0-0.2) K/uL APTT (21.0-31.0) Seconds PTT Ratio Sodium 136 (136-145) mmol/L Potassium 3.8 (3.5-5.1) mmol/L Chloride 103 (98-107) mmol/L Carbon Dioxide 27 (21-32) mmol/L Anion Gap 6.0 (3-11) BUN 14 (7-18) mg/dl Creatinine 1.20 (0.6-1.2) mg/dl Est Cr Clr Drug Dosing 36.1 ml/min Est GFR ( Amer) 50.1 Est GFR (Non-Af Amer) 43.3 BUN/Creatinine Ratio 11.6 (10-20) Glucose 101 H (70-99) mg/dl Estimat Average Glucose mg/dl Hemoglobin A1c (4.5-5.6) % Calcium 8.7 (8.5-10.1) mg/dl Magnesium 2.3 (1.8-2.4) mg/dl Troponin I < 0.015 < 0.015 (0-0.045) ng/ml Triglycerides 43 (0-150) mg/dl Cholesterol 123 (0-200) mg/dl LDL Cholesterol, Calc 39 mg/dl VLDL Cholesterol, Calc 9 mg/dl HDL Cholesterol 75 mg/dl Cholesterol/HDL Ratio 2 TSH 2.600 (0.300-4.500) uIu/ml Urine Color Yellow Urine Appearance Clear (Clear) Urine pH 5.5 (4.5-7.5) Ur Specific [place] 1.020 (1.000-1.030) Urine Protein Negative (Negative) Urine Glucose (UA) Negative (Negative) Urine Ketones Negative (Negative) Urine Blood Trace H (Negative) Urine Nitrite Negative (Negative) Urine Bilirubin Negative (Negative) Urine Urobilinogen Negative (Negative) Ur Leukocyte Esterase Negative (Negative) Urine WBC (Auto) 1-5 (0-5) /hpf Urine RBC (Auto) 0-4 (0-4) /hpf U Hyaline Cast (Auto) 1-5 (0-5) /lpf U Epithel Cells (Auto) >30 H (0-5) /lpf Urine Bacteria (Auto) 2+ H (Negative) Diagnostic Findings telemetry reviewed: Predominant rhythm normal sinus with PVCs, Also sinus bradycardia in the 40s and 50s during presumed sleep. 2D echocardiogram report reviewed dated January 21, 2019: Normal LV chamber size with mild concentric LVH. Hyperdynamic LV systolic function with ejection fraction greater than 70%. No segmental left ventricular wall motion abnormalities are noted. Grade 2 diastolic dysfunction. Aortic valve sclerosis moderate without significant aortic valvular stenosis. There is moderate mitral annular calcification. There is mild mitral reg urgitation. There is no mitral valve stenosis. EKG on admission, reviewed Sinus rhythm with occasional Premature ventricular complexes Moderate voltage criteria for LVH, may be normal variant Cannot rule out Septal infarct , age undetermined Abnormal ECG No previous ECGs available Sinus bradycardia with occasional Premature ventricular complexes Otherwise normal ECG When compared with ECG of 20-JAN-2019 14:33, (unconfirmed) Minimal criteria for Septal infarct are no longer Presen Medications Administered Current Inpatient Medications Acetaminophen (Tylenol) 650 mg PO Q4H PRN PRN Reason: Pain or Fever Stop: 02/19/19 18:20 Last Admin: 01/21/19 03:28 Dose: 650 mg Documented by: Aspirin (Ecotrin Ectab) 81 mg PO [facility] Stop: 02/20/19 08:59 Last Admin: 01/21/19 09:18 Dose: 81 mg Documented by: Clopidogrel Bisulfate (Plavix) 75 mg PO [facility] Stop: 02/20/19 08:59 Last Admin: 01/21/19 09:18 Dose: 75 mg Documented by: Cyanocobalamin (Vitamin B-12) 1,000 mcg PO PM [facility] Stop: 02/19/19 20:59 Last Admin: 01/20/19 20:08 Dose: 1,000 mcg Documented by: Sodium Chloride (Nss 1000ml) 1,000 mls @ 50 mls/hr IV .Q20H [facility] Stop: 02/19/19 18:59 Last Admin: 01/20/19 20:08 Dose: 50 mls/hr Documented by: Ceftriaxone Sodium 1,000 mg/ (Dextrose) 60 mls @ 100 mls/hr IV Q24H [facility]; Protocol Stop: 01/26/19 12:59 Last Infusion: 01/21/19 13:46 Dose: Infused Documented by: [facility] Stop: 02/20/19 06:29 Last Admin: 01/21/19 03:29 Dose: 75 mcg Documented by: Metoprolol Succinate (Toprol Xl) 12.5 mg PO [facility] Stop: 02/20/19 12:29 Last Admin: 01/21/19 13:11 Dose: 12.5 mg Documented by: Nitroglycerin (Nitrostat) 0.4 mg SL UD PRN PRN Reason: Chest Pain Stop: 02/19/19 18:20 Ondansetron HCl (Zofran) 4 mg IV Q6H PRN PRN Reason: Nausea Stop: 02/19/19 18:20 Pantoprazole Sodium (Protonix) 40 mg PO QAM [facility] Stop: 02/20/19 08:59 Last Admin: 01/21/19 09:18 Dose: 40 mg Documented by: Polyethylene Glycol (Miralax Powder Packet) [facility] Stop: 02/20/19 08:59 Last Admin: 01/21/19 09:18 Dose: Not Given Documented by: Rivaroxaban (Xarelto) 15 mg PO QDD [facility] Stop: 02/20/19 16:29 Rosuvastatin Calcium (Crestor) 10 mg PO PM [facility] Stop: 02/19/19 20:59 Last Admin: 01/20/19 20:08 Dose: 10 mg Documented by: Trimethoprim/Sulfamethoxazole (Septra Ds 800/160mg Tab) 0.5 tab PO BID [facility] Stop: 02/19/19 20:59 Last Admin: 01/21/19 09:17 Dose: 0.5 tab Documented by:
[2019-01-21] MEDS ORDERED: RIVAROXABAN 15 MG TAB PO SCH (16:30)
--- NOTE | 2019-01-22 00:32 | Emergency Department Note ---
Entered by Luly Roy acting as a scribe for Randell Christine MD History of Present Illness General Chief complaint: Cardiac Assessment Stated complaint: chest pain/respiratory Time Seen by Provider: 01/20/19 14:35 Source: patient Mode of arrival: ambulatory Limitations: no limitations History of Present Illness Onset (ago): hour(s) 2 Location: chest Radiation: non-radiation Pain Consistency: + constant Relieved By: + none Exacerbated By: + none Associated symptoms: + shortness of breath and + other (+central back pain, - abdominal pain); no chest pain Treatments prior to arrival: other (Aspirin) The patient is a 78 year old female who presents to the ED with complaints of needing a cardiac assessment. She was brought to the ED via EMS. She is from near [place], but is here in [place] visiting her grandchildren. She reports this morning while sitting in car, she felt weak like she "might faint" and complains of central back pain. She called EMS and was given Aspirin in the field. She denies any chest pain but states her chest feels "heavy". She has been minimally short of breath. She had a cardiac stent placed on 01/11 at a hospital in [place]. She was sent home on 01/12 and states her heart rate increased to the 150's the next day, and was reevaluated at a different hospital for unstable atrial fibrillation. She is currently on Aspirin and Xarelto. She denies any current abdominal pain. The patient states when she had her stents placed, her symptoms did feel similar to her current symptoms. Home Medications Home Medications Medication Instructions Recorded Confirmed Type Xarelto 15 mg PO QDD 01/20/19 01/20/19 History aspirin 81 mg PO QAM 01/20/19 01/20/19 History calcium carbonate-vitamin D3 0.5 tab PO BID 01/20/19 01/20/19 History clopidogrel 75 mg PO QAM 01/20/19 01/20/19 History cranberry 500 mg PO PM 01/20/19 01/20/19 History cyanocobalamin (vitamin B-12) 1,000 mcg PO PM 01/20/19 01/20/19 History diphenhydramine-acetaminophen 0.5 - 1 tab PO DIRECTED PRN 01/20/19 01/20/19 History [Tylenol PM Extra Strength] furosemide 10 mg PO QAM 01/20/19 01/20/19 History levothyroxine 75 mcg PO DAILYBB 01/20/19 01/20/19 History pantoprazole 40 mg PO QAM 01/20/19 01/20/19 History polyethylene glycol 3350 [GlycoLax] 17 g PO QAM 01/20/19 01/20/19 History rosuvastatin 10 mg PO PM 01/20/19 01/20/19 History sulfamethoxazole-trimethoprim 0.5 tab PO AMPM 01/20/19 01/20/19 History [Bactrim DS] cefdinir 300 mg PO BID 5 Days #10 cap 01/21/19 Rx metoprolol succinate 12.5 mg PO QAM #0 tab 01/21/19 01/20/19 Rx Allergies Allergy/AdvReac Type Severity Reaction Status Date / Time No Known Allergies Allergy Unverified 01/20/19 15:44 Past Med/Surg History Medical History Hypertension Atrial fibrillation Bradycardia CAD (coronary artery disease) Depression with anxiety Hyperlipidemia Hypothyroidism Paroxysmal atrial fibrillation Sleep apnea Urinary retention Surgical History History of heart artery stent H/O neck surgery History of carpal tunnel surgery History of left knee replacement Family History Father Coronary heart disease Sister Coronary heart disease Brother Coronary heart disease Mother Cancer Social History Preferred Language: Citizen Of The [place] Communication Ability: Effective 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 and A total of 10 systems reviewed and were otherwise negative Physical Exam Vital Signs Vital Signs - 24 hr 01/20/19 14:41 01/20/19 14:57 01/20/19 16:16 Temperature 97.9 F Temperature Source Oral Sepsis Recent Fever Within 48 Hours No Sepsis New/Unexplained Change in Mental Status No Sepsis Action Taken by Nursing No Action Required Pulse Rate 58 L Pulse Rate [Apical] 50 L Respiratory Rate 18 16 Blood Pressure 118/70 Blood Pressure [Left Arm] 111/66 Blood Pressure Mean 86 Blood Pressure Mean [Left Arm] 81 Pulse Oximetry 98 98 98 Oxygen Delivery Method Room Air Room Air Room Air GENERAL: Awake, alert, well-appearing, in no acute distress HENT: Normocephalic, atraumatic. Oropharynx unremarkable. EYES: Normal conjunctiva. Sclera non-icteric. NECK: Supple. No nuchal rigidity. FROM. No JVD. RESPIRATORY: Clear to auscultation. CARDIAC: Regular rate, normal rhythm. Extremities warm and well perfused. Pulses equal. ABDOMEN: Soft, non-distended. No tenderness to palpation. No rebound or guarding. No masses. RECTAL: Deferred. MUSCULOSKELETAL: Chest examination reveals no tenderness. The back is symmetrical on inspection without obvious abnormality. There is no CVA tend erness to palpation. No joint edema. LOWER EXTREMITIES: Calves are equal size bilaterally and non-tender. No edema. No discoloration. NEURO: Normal sensorium. No sensory or motor deficits noted. SKIN: No rash or jaundice noted. Course 1448: The patient was evaluated in room A11B and a complete history and physical were performed. 1539: I paged Dr. Yao at [facility]. 1549: I discussed the patients case with one of Dr. Lara at [facility]. He recommends she be evaluated by the hospital medicine team. 1556: I [facility] the [facility] The patient will be further evaluated. 1625: I reevaluated the patient. She is resting comfortably. I discussed her results and my recommendation she remain in the hospital for further evaluation and management and she verbalized complete understanding and agreement. Consultations Consultation #1: I discussed the patients case with Toy Vieyra ospitalist. The patient will be further evaluated. Time: 15:56 Consultation #2: I discussed the patients case with one of Dr. Lara at [facility]. He recommends she be evaluated by the hospital medicine team. Time: 15:49 Administered Medications Discontinued Medications Acetaminophen (Tylenol) 650 mg PO Q4H PRN PRN Reason: Pain or Fever Stop: 02/19/19 18:20 Last Admin: 01/21/19 03:28 Dose: 650 mg Documented by: [id number] [facility]ab) [facility] [place] Stop: 02/20/19 08:59 Last Admin: 01/21/19 09:18 Dose: 81 mg Documented by: [id number] Clopidogrel Bisulfate (Plavix) 75 mg PO QAM [facility] Stop: 02/20/19 08:59 Last Admin: 01/21/19 09:18 Dose: 75 mg Documented by: [id number] Cyanocobalamin (Vitamin B-12) 1,000 mcg PO PM [facility] Stop: 02/19/19 20:59 Last Admin: 01/20/19 20:08 Dose: 1,000 mcg Documented by: [id number] Magnesium Sulfate/Dextrose (Magnesium Sulfate / D5w) 1 gm in 100 mls @ 100 mls/hr IV ONE ONE Stop: 01/20/19 16:13 Last Infusion: 01/20/19 16:33 Dose: 0 mls/hr Documented by: [id number] Admin: 01/20/19 15:29 Dose: 100 mls/hr Documented by: [id number] Sodium Chloride (Nss 1000ml) 1,000 mls @ 50 mls/hr IV .Q20H [facility] Stop: 02/19/19 18:59 Last Admin: 01/20/19 20:08 Dose: 50 mls/hr Documented by: [id number] Heparin Sodium/Dextrose (Heparin Sodium/Dextrose) 25,000 units in 500 mls @ 17 mls/hr IV .Q24H [facility]; Protocol Stop: 02/19/19 19:44 Last Titration: 01/21/19 12:20 Dose: 0 units/hr, 0 mls/hr Documented by: [id number] Cosigned by: [id number] Titration: 01/21/19 06:04 Dose: 850 units/hr, 17 mls/hr Documented by: [id number] Cosigned by: [id number] Titration: 01/21/19 04:33 Dose: 0 units/hr, 0 mls/hr Documented by: [id number] Cosigned by: [id number] Titration: 01/21/19 02:55 Dose: 0 units/hr, 0 mls/hr Documented by: [id number] Cosigned by: [id number] Admin: 01/20/19 20:08 Dose: 1,050 units/hr, 21 mls/hr Documented by: [id number] Cosigned by: [id number] Ceftriaxone Sodium 1,000 mg/ (Dextrose) 60 mls @ 100 mls/hr IV Q24H [facility]; Protocol Stop: 01/26/19 12:59 Last Infusion: 01/21/19 13:46 Dose: 0 mls/hr Documented by: [id number] Admin: 01/21/19 13:10 Dose: 100 mls/hr Documented by: [id number] Levothyroxine Sodium (Synthroid) 75 mcg PO DAILYBB [facility] Stop: 02/20/19 06:29 Last Admin: 01/21/19 03:29 Dose: 75 mcg Documented by: [id number] Metoprolol Succinate (Toprol Xl) [facility] [place] Stop: 02/20/19 12:29 Last Admin: 01/21/19 13:11 Dose: 12.5 mg Documented by: [id number] Nitroglycerin (Nitrostat) 0.[address] [facility] Stop: 01/20/19 14:58 Last Admin: 01/20/19 15:05 Dose: 0.4 mg Documented by: [id number] Pantoprazole Sodium (Protonix) [facility] [place] Stop: 02/20/19 08:59 Last Admin: 01/21/19 09:18 Dose: 40 mg Documented by: [id number] Polyethylene Glycol (Miralax Powder Packet) [facility] [place] Stop: 02/20/19 08:59 Last Admin: 01/21/19 09:18 Dose: Not Given Documented by: [id number] Rosuvastatin Calcium (Crestor) 10 mg PO PM [facility] Stop: 02/19/19 20:59 Last Admin: 01/20/19 20:08 Dose: 10 mg Documented by: [id number] Trimethoprim/Sulfamethoxazole (Septra Ds 800/160mg Tab) 0.5 tab PO BID [facility] Stop: 02/19/19 20:59 Last Admin: 01/21/19 09:17 Dose: 0.5 tab Documented by: [id number] Admin: 01/20/19 20:08 Dose: 0.5 tab Documented by: [id number] Medical Decision Making Differential Diagnosis Differential diagnoses includes but is not limited to acute coronary syndrome, myocardial infarction, pericarditis, pulmonary embolus, aortic dissection, pneumonia, pneumothorax, musculoskeletal, shingles, esophageal. Medical Records Attestation: I reviewed the patient's medical records. Home Medications Current Medication List: was personally reviewed by me Laboratory Data Attestation: I reviewed the patient's lab results. Result diagrams: 01/21/19 01:51 01/21/19 01:51 Lab Results 01/20/19 01/20/19 01/20/19 Range/Units 14:10 14:10 15:30 WBC 6.30 (4.8-10.8) K/uL RBC 3.98 L (4.2-5.4) M/uL Hgb 13.5 (12.0-16.0) g/dL Hct 39.3 (37-47) % MCV 98.7 (80-100) fL MCH 33.9 (25-34) pg MCHC 34.4 (32-36) g/dL RDW Std Deviation 48.0 H (36.4-46.3) fL RDW Coeff of Hyun 13.2 (11.5-14.5) % Plt Count 241 (130-400) K/uL MPV 10.0 (7.4-10.4) fL Immature Gran % (Auto) 0.2 % Neut % (Auto) 66.5 % Lymph % (Auto) 21.9 % [place] % (Auto) 10.5 % Eos % (Auto) 0.6 % Baso % (Auto) 0.3 % Immature Gran # (Auto) 0.01 (0.00-0.02) K/uL Neut # (Auto) 4.19 (1.4-6.5) K/uL Lymph # (Auto) 1.38 (1.2-3.4) K/uL [place] # (Auto) 0.66 H (0.11-0.59) K/uL Eos # (Auto) 0.04 (0-0.5) K/uL Baso # (Auto) 0.02 (0-0.2) K/uL Sodium 134 L (136-145) mmol/L Potassium 3.8 (3.5-5.1) mmol/L Chloride 98 (98-107) mmol/L Carbon Dioxide 28 (21-32) mmol/L Anion Gap 8.0 (3-11) BUN 17 (7-18) mg/dl Creatinine 1.20 (0.6-1.2) mg/dl Est Cr Clr Drug Dosing 36.0 ml/min Est GFR ( Amer) 50.1 Est GFR (Non-Af Amer) 43.3 BUN/Creatinine Ratio 13.9 (10-20) Glucose 121 H (70-99) mg/dl Calcium 9.4 (8.5-10.1) mg/dl Total Bilirubin 0.4 (0.2-1) mg/dl AST 25 (15-37) U/L ALT 19 (12-78) U/L Alkaline Phosphatase 75 (45-117) U/L Total Creatine Kinase 52 (26-192) U/L CK-MB (CK-2) 1.6 (0.5-3.6) ng/ml CK/CKMB % Calc 3.1 H (0-3.0) Troponin I < 0.015 (0-0.045) ng/ml NT-Pro-B Natriuret Pep 867 (0-1800) pg/ml Total Protein 7.5 (6.4-8.2) gm/dl Albumin 3.7 (3.4-5.0) gm/dl Globulin 3.8 (2.5-4.0) gm/dl Albumin/Globulin Ratio 1.0 (0.9-2) Lipase 163 (73-393) U/L Urine Color Yellow Urine Appearance Clear (Clear) Urine pH 5.5 (4.5-7.5) Ur Specific [place] 1.020 (1.000-1.030) Urine Protein Negative (Negative) Urine Glucose (UA) Negative (Negative) Urine Ketones Negative (Negative) Urine Blood Trace H (Negative) Urine Nitrite Negative (Negative) Urine Bilirubin Negative (Negative) Urine Urobilinogen Negative (Negative) Ur Leukocyte Esterase Negative (Negative) Urine WBC (Auto) 1-5 (0-5) /hpf Urine RBC (Auto) 0-4 (0-4) /hpf U Hyaline Cast (Auto) 1-5 (0-5) /lpf U Epithel Cells (Auto) >30 H (0-5) /lpf Urine Bacteria (Auto) 2+ H (Negative) Imaging Data Radiologist's Impression: Radiology results as stated below per my review and the radiologist's interpretation: XR chest 1V portable CLINICAL HISTORY: Atypical chest pain COMPARISON STUDY: No previous studies for comparison. FINDINGS: The heart is normal in size. There is a possible hiatal hernia.. There is mild interstitial thickening a finding of uncertain chronicity. There is no lobar consolidation. There are no large pleural effusions[. There is mild sclerosis of the right scapular neck IMPRESSION: 1. No evidence of focal pulmonary consolidation 2. Mild interstitial thickening, finding of uncertain chronicity 3. Possible hiatal hernia Electronically signed by: Kahlil Alfaro M.D. 01/20/2019 3:24 PM ECG Data Attestation: I personally reviewed and interpreted this ECG as follows: Indication: chest pain Rate (beats per minute): 65 Rhythm: sinus rhythm Findings: + other (Old septal infarct, QT is 418, normal axis) and + PVC; no ST depression and no ST elevation Blood Pressure Blood Pressure Findings: Normal blood pressure Blood Pressure Disposition: did not require urgent referral MDM Narrative This is a 78-year-old female who presents emergency department complaining of c hest pain. Patient's chest pain was relieved by nitro here in the emergency department. She recently had a stent placed. I did discuss her case with the patient's time motion analyst who asked that the patient be admitted for observation. I did discuss the case with the hospitalist who agreed to admit the patient. Patient was in agreement with the treatment plan. Impression & Plan History of heart artery stent, Hypertension, Chest pain Discharge Plan Visit Data *Final* Discharge Date/Time: 01/20/19 17:40 Chief Complaint: Cardiac Assessment Stated Complaint: chest pain/respiratory ED Provider: Randell Christine Discharge Problem: History of heart artery stent, Hypertension, Chest pain Patient Disposition: Admitted As Inpatient Discharge Instructions Interventions: ED Discharge Assessment Last Done: 01/20/19 17:40 Discharge Problem: Hypertension Qualifiers: Hypertension type: unspecified Qualified Code(s): I10 - Essential (primary) hypertension Chest pain Qualifiers: Chest pain type: unspecified Qualified Code(s): R07.9 - Chest pain, unspecified The scribe's documentation has been prepared under my direction and personally reviewed by me in its entirety. I confirm that the note above accurately reflects all work, treatment, procedures, and medical decision making performed by me.
== END 2019-01-21 16:30 | disposition home or self-care (01) ==
LOC: 2S 14:30 → ED 14:30 → 2S 17:40